=== PATIENT | male | born 1975 | race Caucasian/White ===

== ENCOUNTER 2021-11-06 12:03 | Emergency (ER) | payer OTHER ==
[~2021-11-06] VITALS: Ht 185.4 cm; Wt 170.4 kg
[2021-11-06] MEDS ORDERED: LISI5TAB11 (12:10)
[2021-11-06 14:24] VITALS: BP 164/100
== END 2021-11-06 14:25 | disposition home or self-care (01) ==
LOC: M ED 12:03
DX: S82.64XA Nondisplaced fracture of lateral malleolus of right fibula, initial encounter for closed fracture (principal); W01.0XXA Fall on same level from slipping, tripping and stumbling without subsequent striking against object, initial encounter; I10 Essential (primary) hypertension; Z88.0 Allergy status to penicillin; Z79.899 Other long term (current) drug therapy; Y92.9 Unspecified place or not applicable; Y93.9 Activity, unspecified; Y99.9 Unspecified external cause status

== ENCOUNTER → 2021-11-15 | Outpatient (CLI) | payer OTHER ==
[~2021-11-15] MED LIST: LISI5TAB11
== END ==
LOC: M SOG 09:53
PROVIDERS: ATTEND Physician Assistant
DX: S82.91XE Unspecified fracture of right lower leg, subsequent encounter for open fracture type I or II with routine healing (principal); X58.XXXD Exposure to other specified factors, subsequent encounter

== ENCOUNTER → 2021-12-12 | Outpatient (CLI) | payer OTHER | LOC: M SOG 08:58 | PROVIDERS: ATTEND Physician Assistant | DX: S82.91XA Unspecified fracture of right lower leg, initial encounter for closed fracture (principal) ==

== ENCOUNTER 2024-04-06 11:42 | Emergency (ER) | payer OTHER ==
[~2024-04-06] VITALS: Ht 185.4 cm; Wt 169.9 kg
[2024-04-06] MEDS ORDERED: ISOVUE-370 76% 100ML VIAL As Ordered ONE (14:04)
[2024-04-06 14:06] LABS: BASO # 0.1 10^3/uL (0.0-0.2); BASO % 0.9 % (0.0-1.0); EOS # 0.1 10^3/uL (0.0-0.5); EOS % 1.1 % (0.0-3.0); HEMATOCRIT 48.7 % (42.0-52.0); LYMPH # 2.1 10^3/uL (1.5-5.0); MEAN CORPUSCULAR HEMOGLOBIN 27.4 pg (27.0-33.0); MEAN CORPUSCULAR HGB CONC 32.9 g/dl (32.0-36.5); MEAN CORPUSCULAR VOLUME 83.4 fl (80.0-96.0); MONO # 0.9 10^3/uL (0.0-0.8); MONO % 9.5 % (2.0-8.0); NEUTROPHILS # 5.8 10^3/uL (1.5-8.5); NEUTROPHILS % 65.2 % (36.0-66.0); PLATELET COUNT, AUTOMATED 304 10^3/uL (150-450); RED BLOOD COUNT 5.84 10^6/uL (4.30-6.10)
[2024-04-06 14:25] LABS: KETONE, URINE AUTO RFX NEGATIVE (NEGATIVE); LEUKOCYTE ESTERASE UR AUTO RFX NEGATIVE (NEGATIVE); MUCUS, URINE RFX SMALL (NEGATIVE); NITRITE, URINE AUTO RFX NEGATIVE (NEGATIVE); RBC, URINE AUTO RFX 1 /HPF (0-3); SQUAM EPITHELIAL CELL UR AURFX 0 /HPF (0-6); WBC, URINE AUTO RFX 0 /HPF (0-3)
[2024-04-06 14:40] LABS: ALBUMIN 3.5 G/DL (3.2-5.2); BILIRUBIN,DIRECT 0.1 MG/DL (<0.4); BILIRUBIN,TOTAL 0.4 MG/DL (0.3-1.2); TOTAL PROTEIN 6.9 G/DL (5.7-8.2)
[2024-04-06 14:57] VITALS: BP 138/70; TEMP 98; O2SAT 95
== END 2024-04-06 15:00 | disposition home or self-care (01) ==
LOC: M ED 11:42
DX: R10.9 Unspecified abdominal pain (principal); I10 Essential (primary) hypertension; Z88.0 Allergy status to penicillin; Z79.899 Other long term (current) drug therapy
CPT/HCPCS: 36415; 74177; 80047; 80076; 81001; 83690; 85025; 99284; Q9967